=== PATIENT | female | born 1990 | race Caucasian/White ===

== ENCOUNTER 2016-09-17 10:35 | Inpatient (IN) | payer BC ==
[2016-09-17] MEDS: SODIUM CHLORIDE 0.9% FLUSH 10 ML SOL IV SCH ×4 (11:30→22:11)
[2016-09-17] MEDS ORDERED: METHYLERGONOVINE MALEATE 0.2 MG/ML SOL IM PRN (12:15)
[2016-09-17] MEDS ORDERED: SODIUM CHLORIDE 0.9% FLUSH 10 ML SOL IV PRN (12:15)
[2016-09-17] MEDS ORDERED: FENTANYL 100MCG/2ML SOL IV PRN (12:15)
[2016-09-17] MEDS ORDERED: LACTATED RINGERS 1,000 ML IV PRN (12:15)
[2016-09-17] MEDS ORDERED: OXYTOCIN 10000 MU/ML SOL IM PRN (12:15)
[2016-09-17] MEDS ORDERED: MEPIVACAINE HCL 1% MPF 30 ML SOL INFIL PRN (12:15)
[2016-09-17] MEDS ORDERED: CARBOPROST 250 MCG/ML SOL IM PRN (12:15)
[2016-09-17] MEDS ORDERED: ONDANSETRON HCL 4 MG/2 ML SOL IV PRN (12:20)
[2016-09-17] MEDS ORDERED: NALOXONE HYDROCHLORIDE 0.4 MG/ML SOL IV PRN (12:54)
[2016-09-17] MEDS ORDERED: EPHEDRINE SULFATE 50 MG/ML SOL IV PRN (12:54)
[2016-09-17] MEDS ORDERED: DIPHENHYDRAMINE 50 MG/ML SOL IV PRN (12:54)
[2016-09-17] MEDS ORDERED: NALBUPHINE HCL 20 MG/ML SOL IV PRN (12:54)
[2016-09-17] MEDS: LACTATED RINGERS 1,000 ML IV SCH ×2 (13:00→13:20)
[2016-09-17] MEDS ORDERED: LACTATED RINGERS 1,000 ML IV SCH (13:00)
[2016-09-17 13:17] LABS: BASOPHILS % (AUTO) 1 % (0-3); EOSINOPHILS % (AUTO) 0 % (0-9); HEMATOCRIT 33 % (35-47); MEAN CORPUSCULAR HGB CONC 35.3 gm/dl (32.0-36.0); MEAN CORPUSCULAR VOLUME 89 fL (81-99); NEUTROPHILS % (AUTO) 84.8 % (37-80)
[2016-09-17] MEDS ORDERED: ROPIVACAINE HYDROCHLORIDE 5 MG/ML SOL ONE ×3 (13:37→14:19)
[2016-09-17] MEDS ORDERED: LIDOCAINE HCL 2% MPF SOL ONE ×2 (13:37→14:15)
[2016-09-17] MEDS ORDERED: FENTANYL 250 MCG/ 5ML SOL ONE (13:37)
[2016-09-17] MEDS ORDERED: CITRIC ACID/SODIUM CITRATE SOL PO ONE (14:10)
[2016-09-17] MEDS ORDERED: BENZOCAINE/MENTHOL 1 SPR TOP PRN (17:54)
[2016-09-17] MEDS ORDERED: METHYLERGONOVINE MALEATE 0.2 MG TAB PO PRN (17:54)
[2016-09-17] MEDS ORDERED: TEMAZEPAM 15MG 15 MG CAP PO PRN (17:54)
[2016-09-17] MEDS ORDERED: WITCH HAZEL 1 EA PAD TOP PRN (17:54)
[2016-09-17] MEDS ORDERED: BISACODYL 10 MG SUP PR PRN (17:54)
[2016-09-17] MEDS ORDERED: FLEET ENEMA PR PRN (17:54)
[2016-09-17] MEDS ORDERED: APAP/HYDROCODONE 325/5 TAB PO PRN (17:54)
[2016-09-17] MEDS: IBUPROFEN 600 MG TAB PO PRN (18:58)
[2016-09-17] MEDS: DOCUSATE SODIUM 100 MG SGL PO SCH (22:12)
[2016-09-18] MEDS: IBUPROFEN 600 MG TAB PO PRN ×3 (02:23→17:49)
[2016-09-18] MEDS: SODIUM CHLORIDE 0.9% FLUSH 10 ML SOL IV SCH (05:38)
[2016-09-18 05:50] VITALS: O2SAT 96
[2016-09-18] MEDS: DOCUSATE SODIUM 100 MG SGL PO SCH ×2 (09:47→21:01)
[2016-09-19 02:25] VITALS: PULSE 80; RESP 16; TEMP 97.6
[2016-09-19] MEDS: IBUPROFEN 600 MG TAB PO PRN (03:46)
[2016-09-19] MEDS: DOCUSATE SODIUM 100 MG SGL PO SCH (10:03)
[2016-09-19 10:09] VITALS: BP 108/70
== END 2016-09-19 15:40 | disposition home or self-care (01) | DRG 560 ==
LOC: OBSVTOIN 10:35 → OB 10:35
PROVIDERS: ADMIT Family Medicine; ATTEND Family Medicine
PROC: 10D07Z6 Extraction of Products of Conception, Vacuum, Via Natural or Artificial Opening (ICD-10-PCS; principal; 2016-09-17)
PROC: 0DQR0ZZ Repair Anal Sphincter, Open Approach (ICD-10-PCS; 2016-09-17)
PROC: 0KQM0ZZ Repair Perineum Muscle, Open Approach (ICD-10-PCS; 2016-09-17)
DX: O76 Abnormality in fetal heart rate and rhythm complicating labor and delivery (principal); O70.20 Third degree perineal laceration during delivery, unspecified; O69.81X0 Labor and delivery complicated by cord around neck, without compression, not applicable or unspecified; Z3A.40 40 weeks gestation of pregnancy; Z37.0 Single live birth
CPT/HCPCS: 36415; 59025; 85018; 85025; J2405; J2590; J2795; J3010